=== PATIENT | male | born 1985 | race Caucasian/White ===

== ENCOUNTER 2024-05-20 20:31 | Emergency (ER) | payer SELFPAY ==
[2024-05-20 20:35] VITALS: BP 135/78; PULSE 65; TEMP 36.8; O2SAT 96; BMI 34.0
--- NOTE | 2024-05-20 20:56 | XR_ITS ---
[facility] [id number] Patient Name: HAN PEOPLES MRN: [id number] date: 1985 Sex: M Assigned Patient Location: ED.MAIN Current Patient Location: Accession/Order Number: [id number] Exam Date: 05/20/2024 21:06 Report Date: 05/20/2024 22:39 At the request of: AUSTYN BROOKE Procedure: XR wrist RT min 3V EXAM: XR wrist RT min 3V HISTORY: The patient is a 39-year-old male, pain, injury COMPARISON: None. FINDINGS: The right wrist is radiographically negative with no evidence of fracture, dislocation, joint space narrowing, or other osseous or articular abnormalities. XR/XR wrist RT min 3V IMPRESSION: Negative. Electronically authenticated by: INDER KEE Date: 05/20/2024 22:39
[2024-05-20] MEDS: OXYCODONE HCL/ACETAMINOPHEN 5MG/325MG 1 TAB PO (21:03)
--- NOTE | 2024-05-20 21:18 | ED_ITS ---
HPI HPI - Extremity Injury (Upper) General Chief Complaint: Extremity Injury, Upper Stated Complaint: FELL Time Seen by Provider: 05/20/24 20:38 Source: patient and friend Mode of arrival: walk-in Limitations: no limitations History of Present Illness HPI narrative: 39-year-old male presents to the emergency department with his ex- with complaint of right wrist pain. Patient states he injured it earlier when he tripped on something in his garage, falling on outstretched hand. Has associated tenderness. Pain worsens with movement or palpation. Denies any other injury, motor or sensory changes, paresthesias. Patient is right-handed. Quality:?Fall on outstretched hand Severity:?Moderate Timing:?As above, constant Context: Normal setting and activity? Modifying factors:?Pain worsens with palpation or movement Associated symptoms: swelling Related Data Previous Rx's ?Medication ?Instructions ?Recorded hydrocodone 5 mg-acetaminophen 325 1 tab PO Q8H PRN pain #8 tabs 05/20/24 mg tablet Allergies Allergy/AdvReac Type Severity Reaction Status Date / Time No Known Drug Allergies Allergy Verified 05/20/24 20:35 Opioid HPI Opioid Management Most Recent Pain and Opioid Data: Last Pain Scale 6 05/20/24 21:07 Review of Systems ROS Constitutional Denies: fatigue or malaise Musculoskeletal Reports: extremity pain, extremity swelling, joint pain and limited range of motion Neurological Denies: numbness in extremities or weakness in extremities Endocrine Denies: fatigue or other (wound) Exam Constitutional Vital Signs, click to edit/add: Last Vital Signs Temp 98.2 F 05/20/24 20:35 Pulse 65 05/20/24 20:35 Resp 14 05/20/24 20:35 BP 135/78 05/20/24 20:35 Pulse Ox 96 05/20/24 20:35 O2 Del Method Room Air 05/20/24 20:35 Documenting provider has reviewed patient's vital signs: yes Common normals: no apparent distress and oriented x3 General appearance: well developed Cardio Peripheral pulses: radial pulses present right 2+ Extremity Other: Right wrist: +tenderness to the distal ulnar region with some mild swelling.? No tenderness to the distal radius, anatomical snuffbox, hand, fingers.? No ecchymosis, discoloration, crepitus, deformity, instability, warmth.? ROM somewhat limited due to pain, but able to perform to a good degree flexion and extension.? Strength 5/5 Neuro Common normals: oriented x3, no focal motor deficits and no sensory deficits noted Psych Common normals: mental status grossly normal and thought process normal Thought process: normal thought process Course Vital Signs Vital signs: Vital Signs Temperature 98.2 F 05/20/24 20:35 Pulse Rate 65 05/20/24 20:35 Respiratory Rate 14 05/20/24 20:35 Blood Pressure 135/78 05/20/24 20:35 Pulse Oximetry 96 05/20/24 20:35 Oxygen Delivery Method Room Air 05/20/24 20:35 Temperature 98.2 F 05/20/24 20:35 Pulse Rate 65 05/20/24 20:35 Respiratory Rate 14 05/20/24 20:35 Blood Pressure 135/78 05/20/24 20:35 Pulse Oximetry 96 05/20/24 20:35 Oxygen Delivery Method Room Air 05/20/24 20:35 MDM - Extremity Injury (Upper) MDM Narrative Medical decision making narrative: This is a pleasant 39-year-old male presents to the emergency department complaint of falling and injuring his right wrist. On arrival, afebrile, vital signs stable. Exam, nontoxic, well-appearing patient in no distress. He has tenderness over the distal ulna. No distal radius, anatomical snuffbox, hand, finger tenderness. Range of motion is performed well. This does cause some pain. Neurovascularly intact. Wet read x-ray imaging of his right wrist reveals no acute findings Favor right wrist sprain Fracture, dislocation less likely based on imaging Patient placed in splint Disposition ? The patient was discharged. Plan: Patient will be discharged to home. Condition at time of disposition: stable He was sent home with limited supply of [employer]. Advised rest, ice, elevation. He was placed in Velcro wrist splint Advised to follow up with orthopedics. Referral information placed on discharge paperwork. Advised to return for any worsening and/or development of new, concerning signs or symptoms PLEASE NOTE: Portions of the medical record may have been produced using electronic ticker wirer and may contain errors with respect to translation of words which may not have been identified prior to finalization of the chart. Discharge Plan Discharge Stand Alone Forms: Work/School Release, Portal Instructions Chief Complaint: Extremity Injury, Upper Clinical Impression: Sprain and strain of wrist, Acute pain of right wrist Patient Disposition: Home, Self-Care Time of Disposition Decision: 21:23 Mode of Transportation: Private Vehicle Prescriptions / Home Meds: New hydrocodone-acetaminophen 5-325 mg tablet 1 tab PO Q8H PRN (Reason: pain) Qty: 8 0RF Print Language: Bel[place]ian Instructions: Wrist Injury (ED) Referrals: Alberto Asher MD [Physician] - 05/22/24
== END 2024-05-20 21:50 | disposition home or self-care (01) ==
PROVIDERS: Emergency Provider Emergency Medicine
DX: S63.501A Unspecified sprain of right wrist, initial encounter (principal); S66.911A Strain of unspecified muscle, fascia and tendon at wrist and hand level, right hand, initial encounter; M25.531 Pain in right wrist; W01.10XA Fall on same level from slipping, tripping and stumbling with subsequent striking against unspecified object, initial encounter
CPT/HCPCS: 73110; 99284